=== PATIENT | female | born 1955 | race African-American/Black ===

== ENCOUNTER 2017-07-26 08:08 | Emergency (ER) | payer MEDICARE ==
[2017-07-26] MEDS ORDERED: ONDANSETRON HCL INJ/PF 4 MG/2 ML SDV IV ONE (09:27)
[2017-07-26] MEDS ORDERED: MORPHINE SULFATE 10 MG/ML INJ IV ONE (09:27)
[2017-07-26] MEDS ORDERED: KETOROLAC TROMETHAMINE INJ/PF 30 MG/1 ML SDV IV ONE (09:27)
--- NOTE | 2017-07-26 09:35 | ER Document Report ---
ED General - General Chief Complaint: Back Pain Stated Complaint: LEFT SIDE PAIN Time Seen by Provider: 07/26/17 09:26 Notes: 61-year-old female patient to the emergency department chief complaint of pain in the lower abdomen/left inguinal area. States that she has been working in a very cold environment. This hurts her leg. Denies any trauma. Denies any excessive stress. No prior history of sickle cell disease. No prior history of kidney stones. No fever, chills, sweats. Patient states that the pain is severe. TRAVEL OUTSIDE OF THE [place] IN LAST 30 DAYS: No - HPI Onset: Yesterday Onset/Duration: Gradual Quality of pain: Throbbing Associated symptoms: None Exacerbated by: Standing, Movement - Related Data Allergies/Adverse Reactions: No Known Allergies Allergy (Verified 07/26/17 08:10) Past Medical History - General Information source: Patient - Social History Smoking Status: Unknown if Ever Smoked Cigarette use (# per day): No Frequency of alcohol use: None Drug Abuse: None Lives with: Family Family History: Reviewed & Not Pertinent - Past Medical History Cardiac Medical History: Reports: None Pulmonary Medical History: Reports: None EENT Medical History: Reports: None Neurological Medical History: Reports: None Endocrine Medical History: Reports: None Renal/ Medical History: Reports: None Malignancy Medical History: Reports: None GI Medical History: Reports: None Musculoskeltal Medical History: Reports None Skin Medical History: Reports None Psychiatric Medical History: Reports: None Traumatic Medical History: Reports: None Infectious Medical History: Reports: None Review of Systems - Review of Systems Constitutional: denies: Chills, Diaphoresis, Fever, Malaise, Weakness EENT: denies: Eye pain, Eye discharge, Blurred vision, Mouth pain, Mouth swelling Cardiovascular: denies: Chest pain, Palpitations, Heart racing, Orthopnea, Dyspnea, Syncope Respiratory: denies: Cough, Hurts to breathe, Short of breath, Sputum, Wheezing Gastrointestinal: denies: Abdominal pain, Diarrhea, Nausea, Vomiting, Constipation Female Genitourinary: Post menopausal. denies: Vaginal discharge, Vaginal bleeding, Vaginal odor Musculoskeletal: Joint pain, Muscle pain. denies: Back pain, Gout, Joint swelling, Muscle stiffness, Deformity Hematologic/Lymphatic: denies: Blood clots, Easy bleeding, Easy bruising, Enlarged lymph nodes, Swollen glands Neurological/Psychological: denies: Confusion, Dementia, Depression, Weakness Physical Exam - Vital signs Vitals: Temp Pulse Resp BP Pulse Ox 98.9 F 77 16 137/69 H 100 07/26/17 08:16 07/26/17 08:16 07/26/17 08:16 07/26/17 08:16 07/26/17 08:16 Interpretation: Normal - General General appearance: Appears well, Alert - HEENT Head: Normocephalic, Atraumatic Eyes: Normal Pupils: PERRL - Respiratory Respiratory status: No respiratory distress Chest status: Nontender Breath sounds: Normal Chest palpation: Normal - Cardiovascular Rhythm: Regular Heart sounds: Normal auscultation Murmur: No - Abdominal Inspection: Normal Distension: No distension Bowel sounds: Normal Tenderness: Nontender. No: Guarding, Rebound Organomegaly: No organomegaly - Back Back: Normal, Nontender - Extremities General upper extremity: Normal inspection, Nontender, Normal color, Normal ROM , Normal temperature General lower extremity: Normal inspection, Normal color, Normal ROM, Normal temperature, Normal weight bearing, Other - There is some mild tenderness to palpation in the left inguinal iliopsoas type area. Good pulses present at the femoral artery as well as distally at the dorsalis pedis. No obvious deformities noted.. No: Aubrie's sign - Neurological Neuro grossly intact: Yes Cognition: Normal Orientation: AAOx4 Soledad Coma Scale Eye Opening: Spontaneous Eleonora Coma Scale Verbal: Oriented Soledad Coma Scale Motor: Obeys Commands Soledad Coma Scale Total: 15 Speech: Normal Motor strength normal: LUE, RUE, LLE, RLE Sensory: Normal - Psychological Associated symptoms: Normal affect, Normal mood - Skin Skin Temperature: Warm Skin Moisture: Dry Skin Color: Normal Course - Re-evaluation Re-evalutation: 07/26/17 11:07 Uncertain etiology of patient's symptoms. Based on the fact that there could be issues with regards to blood vessels will CT the abdomen and pelvis to evaluate for any potential discrepancies there or reasons which would explain her pain in the left inguinal region. 07/26/17 11:33 Patient explained results of CT scan. Find no obvious reason to explain her pain today. Patient was advised she will need close follow-up. Will advise her to follow-up with her regular doctor. Pain medications were given. Will advise she continue with anti-inflammatories as an outpatient. Patient advised to return for any worsening symptoms or concerns. Of note there is no asymmetrical swelling of the bilateral lower extremities. There is no atrium symmetrical swelling or pain in the cast. Concern for DVT low at this time. - Vital Signs Vital signs: Temp Pulse Resp BP Pulse Ox 98.9 F 77 16 137/69 H 100 07/26/17 08:16 07/26/17 08:16 07/26/17 08:16 07/26/17 08:16 07/26/17 08:16 07/26/17 11:04 Abdomen/Pelvis CT 07/26/17 09:26 IMPRESSION: A moderate amount of gas and fecal material is identified throughout the colon. There are couple short segments of small bowel in the left abdomen with some apparent thickening of the schofield. This is of uncertain etiology or significance. Clinical correlation is recommended. Moderate size pericardial effusion is identified. Other findings as noted above - Laboratory Result Diagrams: 07/26/17 09:50 07/26/17 09:50 Laboratory results interpreted by me: 07/26/17 07/26/17 09:50 10:45 WBC 3.3 L RDW 14.2 H Absolute Neutrophils 1.4 L Urine Urobilinogen 2.0 H Ur Leukocyte Esterase SMALL H Discharge - Discharge Clinical Impression: Left inguinal pain Condition: Good Disposition: HOME, SELF-CARE Additional Instructions: Anti-Inflammatory Medication You have received a prescription for an antiinflammatory agent. This is an excellent, safe drug for pain control. In addition, it has potent antiinflammatory effects which are beneficial, especially in the treatment of injuries, arthritis, or tendonitis. It's best to take this medicine with food. Persons with ulcer disease or allergy to aspirin should notify their physician of this before taking this drug. Take the medication exactly as prescribed. Don't take additional doses unless instructed to do so by your doctor. If you develop wheezing, shortness of breath, hives, faintness, stomach pain, vomiting, or dark black stools, return for re-evaluation at once.Muscle Relaxers Muscle relaxing medications are usually prescribed for acute muscle spasm or injury to the neck and back. They are often combined with antiinflammatory pain medication for increased relief. You may stop the muscle relaxer when the pain and stiffness have improved. Start the medication again if spasms recur. Muscle relaxers may cause drowsiness, especially with the first dose. Do not operate machinery or drive while under the effects of the medication. Most muscle relaxers last up to 24 hours. Do not combine the medication with alcohol.Muscle Strain You have strained a muscle -- torn the fibers within the muscle. This often occurs with strenuous exertion, or during an injury that suddenly stretches the muscle. The seriousness of a strain varies. Some strains heal within days, others cause problems for months. X-rays cannot show a muscle strain. X-rays are taken only if symptoms suggest that a fracture could be present. The usual treatment of a muscle strain is rest and ice packs. Sometimes, a sling, splint, or crutches may be necessary to rest the muscle. The muscle can be used again once pain subsides. Severe strains require a special exercise and stretching program to prevent permanent stiffness and disability. Your doctor will advise you if this will be necessary. Call the doctor immediately if pain or swelling becomes severe, or if numbness or discoloration develop. Prescriptions: Diazepam [Valium 5 mg Tablet] 5 mg PO BID 5 Days #15 tablet Ibuprofen [Motrin 600 Mg Tablet] 600 mg PO TID #15 tablet Forms: Return to Work Referrals: YG FELIX NP [Primary Care Provider] - Follow up in 3-5 days
[2017-07-26] MEDS ORDERED: KETOROLAC TROMETHAMINE 60 MG/2 ML SDV IM ONE (09:48)
[2017-07-26] MEDS ORDERED: MORPHINE SULFATE 10 MG/ML INJ IM ONE (09:49)
[2017-07-26 10:04] LABS: ABSOLUTE EOSINOPHILS # (AUTO) 0.2 10^3/uL (0.0-0.6); ABSOLUTE LYMPHOCYTES (AUTO) 1.3 10^3/uL (0.5-4.7); ABSOLUTE MONOCYTES (AUTO) 0.3 10^3/uL (0.1-1.4); ABSOLUTE NEUT (AUTO) 1.4 10^3/uL (1.7-8.2); BASOPHILS % (AUTO) 1.2 % (0-2); HEMATOCRIT 41.5 % (36.0-47.0); HEMOGLOBIN 13.5 g/dL (12.0-15.5); LYMPHOCYTES % (AUTO) 40.1 % (13-45); MEAN CORPUSCULAR HEMOGLOBIN 29.2 pg (27.0-33.4); MEAN CORPUSCULAR HGB CONC 32.5 g/dL (32.0-36.0); MEAN CORPUSCULAR VOLUME 90 fl (80-97); MONOCYTES % (AUTO) 10.3 % (3-13); PLATELET COUNT 232 10^3/uL (150-450); RED BLOOD COUNT 4.61 10^6/uL (3.72-5.28); RED CELL DISTRIBUTION WIDTH 14.2 % (11.5-14.0); SEGMENTED NEUTROPHILS % (AUTO) 43.4 % (42-78); TOTAL CELLS COUNTED % (AUTO) 100 %; WHITE BLOOD COUNT 3.3 10^3/uL (4.0-10.5)
[2017-07-26 10:27] LABS: ALANINE AMINOTRANSFERASE 22 U/L (9-52); ALBUMIN 4.2 g/dL (3.5-5.0); ALKALINE PHOSPHATASE 105 U/L (38-126); ANION GAP 6 (5-19); ASPARTATE AMINO TRANSFERASE 22 U/L (14-36); BILIRUBIN,DIRECT 0.2 mg/dL (0.0-0.4); BILIRUBIN,TOTAL 0.2 mg/dL (0.2-1.3); BLOOD UREA NITROGEN 11 mg/dL (7-20); CALCIUM 10.2 mg/dL (8.4-10.2); CARBON DIOXIDE 29 mmol/L (22-30); CHLORIDE 107 mmol/L (98-107); GLUCOSE 99 mg/dL (75-110); POTASSIUM 4.1 mmol/L (3.6-5.0); TOTAL PROTEIN 6.9 g/dL (6.3-8.2)
--- NOTE | 2017-07-26 10:41 | RADIOLOGY REPORT (SQ) ---
EXAM DESCRIPTION: CT ABD/PELVIS NO ORAL OR IV COMPLETED DATE/TIME: 07/26/2017 10:21 am REASON FOR STUDY: left inguinal pain/pelvis pain COMPARISON: None. TECHNIQUE: CT scan of the abdomen and pelvis performed without intravenous or oral contrast. Images reviewed with lung, soft tissue, and bone windows. Reconstructed coronal and sagittal MPR images revi ewed. All images stored on PACS. All CT scanners at this facility use dose modulation, iterative reconstruction, and/or weight based d osing when appropriate to reduce radiation dose to as low as reasonably achievable (ALARA). [facility]: Dose Right [facility]: CareDose [facility]: Dose Right [facility]: Teradose 4D [facility]: Corvalius RADIATION DOSE: mGy. LIMITATIONS: None. FINDINGS: LOWER CHEST: Ill-defined basilar densities are identified most consistent with atelectatic changes although the possibility of developing pneumonic infiltrates cannot be excluded. No pleural effusions are identified. Moderate size pericardial effusion is identified. NON-CONTRASTED LIVER, SPLEEN, ADRENALS: Evaluation limited by lack of IV contrast. No identified sign ificant masses. There are a couple small hepatic cyst in the right lobe of the liver with the larges t measuring 2.6 cm in greatest diameter. There are couple other tiny relative low density areas whic h are too small to further characterize by CT. PANCREAS: No masses. No peripancreatic inflammatory changes. GALLBLADDER: No identified stones by CT criteria. No inflammatory changes to suggest cholecystitis. RIGHT KIDNEY AND URETER: No suspicious masses. Assessment limited by lack of IV contrast. No signif icant calcifications. No hydronephrosis or hydroureter. LEFT KIDNEY AND URETER: No suspicious masses. Assessment limited by lack of IV contrast. No signifi cant calcifications. No hydronephrosis or hydroureter. AORTA AND RETROPERITONEUM: No aneurysm. No retroperitoneal masses or adenopathy. BOWEL AND PERITONEAL CAVITY: No obvious masses or inflammatory changes. No free fluid. A moderate am ount of gas and fecal material is identified throughout the colon. There are a couple short segments of small bowel in the left abdomen with some apparent thickening of the schofield. This is of uncertain etiology or significance. APPENDIX: Normal. PELVIS, BLADDER, AND ABDOMINAL WALL:No abnormal masses. No free fluid. Bladder normal. BONES: An old fracture of the inferior pubic ramus on the right is identified. OTHER: No other significant finding. IMPRESSION: A moderate amount of gas and fecal material is identified throughout the colon. There a re couple short segments of small bowel in the left abdomen with some apparent thickening of the wall s. This is of uncertain etiology or significance. Clinical correlation is recommended. Moderate si ze pericardial effusion is identified. Other findings as noted above COMMENT: Quality ID # [id number]: Final reports with documentation of one or more dose reduction techniques (e.g., Automated exposure control, adjustment of the mA and/or kV according to patient size, use of iterative reconstruction technique) TECHNICAL DOCUMENTATION: JOB ID: [id number] [employer]- All Rights Reserved
[2017-07-26 11:13] LABS: APPEARANCE,URINE SLIGHTLY-CLOUDY; BILIRUBIN,URINE NEGATIVE (NEGATIVE); CALCIUM OXALATE CRYSTALS,URINE MANY /HPF; COLOR,URINE YELLOW; GLUCOSE, URINE NEGATIVE (NEGATIVE); KETONES,URINE NEGATIVE (NEGATIVE); LEUKOCYTE ESTERASE,URINE SMALL (NEGATIVE); NITRITE,URINE NEGATIVE (NEGATIVE); PROTEIN,URINE NEGATIVE (NEGATIVE); URINE SPECIFIC GRAVITY 1.017
[2017-07-26 11:53] VITALS: BP 128/52
== END 2017-07-26 12:00 | disposition home or self-care (01) ==
LOC: ER 08:08
DX: R10.32 Left lower quadrant pain (principal)
CPT/HCPCS: 99284; 96372; 36415; 87086; 85025; 87088; 80053; 81001; 87186; 74176; J1885; J2270

== ENCOUNTER → 2018-07-13 | Outpatient (CLI) | payer MEDICARE ==
--- NOTE | 2018-07-13 11:32 | WOMENS IMAGING REPORT ---
EXAM DESCRIPTION: BONE DENSITY HIP/SPINE COMPLETED DATE/TIME: 07/13/2018 10:08 am REASON FOR STUDY: BONE DENSITY Z12.31 ENCNTR SCREEN MAMMOGRAM FOR MALIGNANT NEOPLASM OF DAVID Z78.0 ASYMPTOMATIC MENOPAUSAL STATE COMPARISON: None. TECHNIQUE: Dual-Energy X-ray Absorptiometry (DEXA) of the AP Spine and Hip. LIMITATIONS: None. FINDINGS: LUMBAR SPINE: The bone mineral density (BMD) measured from L1-L4 in the AP projection correlates with a T-score of -1.8, which is osteopenia as defined by the World Health Organization. HIP: The bone mineral density (BMD) measured in the left hip correlates with a T-score of -2.0, which is o steopenia as defined by the World Health Organization. IMPRESSION: 1. LUMBAR SPINE: OSTEOPENIA. 2. HIP: OSTEOPENIA. COMMENT: The World Health Organization defines low BMD as follows: T-score: Normal: Greater than -1.0 Osteopenia: Between -1.0 and -2.5 Osteoporosis: Less than -2.5 without fractures Established osteoporosis: Less than -2.5 with fractures In general, you may wish to consider: Diagnosis Treatment Follow-up DEXA Normal BMD Prevention 2-3 years Osteopenia Prevention/Therapy 1-2 years Osteoporosis Therapy Yearly TECHNICAL DOCUMENTATION: JOB ID: [id number] [employer]- All Rights Reserved Reading location - IP/workstation name: [email or web address]
== END ==
LOC: WI 11:01
PROVIDERS: ATTEND Physician Assistant
DX: Z12.31 Encounter for screening mammogram for malignant neoplasm of breast (principal); Z13.820 Encounter for screening for osteoporosis
CPT/HCPCS: 77067; 77080

== ENCOUNTER 2019-02-12 11:55 | Emergency (ER) | payer MEDICARE ==
--- NOTE | 2019-02-12 12:25 | ER Document Report ---
ED Medical Screen (RME) - General Chief Complaint: Chest Pain Stated Complaint: NUMBNESS Time Seen by Provider: 02/12/19 12:20 Primary Care Provider: YUE PICKETT PA-C [Primary Care Provider] - Follow up as needed Mode of Arrival: Ambulatory Information source: Patient Notes: Patient is a 63-year-old female presents the emergency department chief complaint of left arm pain and chest pressure. Patient reports left arm pain has been going on for approximately 2 weeks. She reports it feels like a sharp stabbing pain with tingling. She states that approximately 3 days ago she started having left-sided chest pressure that radiates straight through to her left shoulder. She denies any nausea or vomiting but does report shortness of breath. She does report a history of hypertension but states it took her off of all of her medications. She is a former smoker. Exam: Lung sounds clear and equal bilaterally. Heart sounds S1-S2 present with no ectopy noted. I have greeted and performed a rapid initial assessment of this patient. A comprehensive ED assessment and evaluation of the patient, analysis of test results and completion of the medical decision making process will be conducted by additional ED providers. I have specifically instructed the patient or family members with the patient to immediately return to any nursing staff should anything change in the patient's condition or with their chief complaint. This medical record was dictated with voice recognizing software. There may be grammatical, syntax errors that are unintended. TRAVEL OUTSIDE OF THE [place] IN LAST 30 DAYS: No - Related Data Allergies/Adverse Reactions: No Known Allergies Allergy (Verified 07/26/17 08:10) Past Medical History - Past Medical History Cardiac Medical History: Reports: Hx Hypertension Renal/ Medical History: Denies: Hx Peritoneal Dialysis Past Surgical History: Reports: Hx Breast Surgery - lumpnectomy, Hx Orthopedic Surgery Physical Exam - Vital signs Vitals: Temp Pulse Resp BP Pulse Ox 98.4 F 77 20 151/69 H 97 02/12/19 12:02/12/19 12:02/12/19 12:02/12/19 12:02/12/19 12:01 Course - Vital Signs Vital signs: Temp Pulse Resp BP Pulse Ox 98.4 F 77 20 151/69 H 97 02/12/19 12:02/12/19 12:02/12/19 12:01 02/12/19 12:01 02/12/19 12:01 Doctor's Discharge - Discharge Referrals: YUE PICKETT PA-C [Primary Care Provider] - Follow up as needed
[2019-02-12 13:13] LABS: ABSOLUTE BASOPHILS # (AUTO) 0.1 10^3/uL (0.0-0.2); ABSOLUTE EOSINOPHILS # (AUTO) 0.3 10^3/uL (0.0-0.6); ABSOLUTE LYMPHOCYTES (AUTO) 1.8 10^3/uL (0.5-4.7); ABSOLUTE MONOCYTES (AUTO) 0.5 10^3/uL (0.1-1.4); ABSOLUTE NEUT (AUTO) 2.6 10^3/uL (1.7-8.2); ALBUMIN 3.9 g/dL (3.5-5.0); ALKALINE PHOSPHATASE 85 U/L (38-126); ASPARTATE AMINO TRANSFERASE 32 U/L (14-36); BILIRUBIN,DIRECT 0.2 mg/dL (0.0-0.4); BILIRUBIN,TOTAL 0.8 mg/dL (0.2-1.3); BLOOD UREA NITROGEN 15 mg/dL (7-20); CALCIUM 9.7 mg/dL (8.4-10.2); CHLORIDE 108 mmol/L (98-107); EOSINOPHILS % (AUTO) 4.9 % (0-6); GLUCOSE 94 mg/dL (75-110); HEMATOCRIT 40.2 % (36.0-47.0); HEMOGLOBIN 13.3 g/dL (12.0-15.5); LYMPHOCYTES % (AUTO) 34.9 % (13-45); MEAN CORPUSCULAR HEMOGLOBIN 30.6 pg (27.0-33.4); MEAN CORPUSCULAR HGB CONC 33.1 g/dL (32.0-36.0); MEAN CORPUSCULAR VOLUME 92 fl (80-97); MONOCYTES % (AUTO) 9.6 % (3-13); PLATELET COUNT 249 10^3/uL (150-450); RED BLOOD COUNT 4.36 10^6/uL (3.72-5.28); RED CELL DISTRIBUTION WIDTH 14.1 % (11.5-14.0); SEGMENTED NEUTROPHILS % (AUTO) 49.6 % (42-78); TOTAL CELLS COUNTED % (AUTO) 100 %; TOTAL PROTEIN 6.4 g/dL (6.3-8.2); WHITE BLOOD COUNT 5.2 10^3/uL (4.0-10.5)
[2019-02-12 13:22] LABS: ANION GAP 5 (5-19); CARBON DIOXIDE 27 mmol/L (22-30); POTASSIUM 4.1 mmol/L (3.6-5.0)
--- NOTE | 2019-02-12 13:42 | RADIOLOGY REPORT (SQ) ---
EXAM DESCRIPTION: CHEST 2 VIEWS COMPLETED DATE/TIME: 02/12/2019 1:31 pm REASON FOR STUDY: chest pressure COMPARISON: None. EXAM PARAMETERS: NUMBER OF VIEWS: two views TECHNIQUE: Digital Frontal and Lateral radiographic views of the chest acquired. RADIATION DOSE: NA LIMITATIONS: none FINDINGS: LUNGS AND PLEURA: No opacities, masses or pneumothorax. No pleural effusion. MEDIASTINUM AND HILAR STRUCTURES: No masses or contour abnormalities. HEART AND VASCULAR STRUCTURES: Cardiomegaly. Mild pulmonary edema. BONES: No acute findings. HARDWARE: None in the chest. OTHER: No other significant finding. IMPRESSION: Cardiomegaly with mild pulmonary edema. TECHNICAL DOCUMENTATION: JOB ID: [id number] [employer]- All Rights Reserved Reading location - IP/workstation name: [email or web address]
[2019-02-12] MEDS ORDERED: DEXAMETHASONE SOD PHOS INJ 10 MG/1 ML VIAL IV ONE ×2 (14:04→17:30)
[2019-02-12] MEDS ORDERED: ACETAMINOPHEN 325 MG TABLET PO ONE ×2 (14:04→17:30)
[2019-02-12] MEDS ORDERED: LIDOCAINE 5% (700 MG) TRANSDERMAL ADH..PATCH TP ONE ×2 (14:04→17:30)
[2019-02-12] MEDS ORDERED: KETOROLAC TROMETHAMINE INJ/PF 30 MG/1 ML SDV IV ONE ×2 (14:04→17:30)
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
--- NOTE | 2019-02-12 15:52 | EKG REPORT ---
SEVERITY:- ABNORMAL ECG - SINUS RHYTHM PROBABLE LEFT ATRIAL ABNORMALITY LEFT ANTERIOR FASCICULAR BLOCK LOW VOLTAGE IN FRONTAL LEADS : Confirmed by: Anna Joseph MD 12-Feb-2019 15:51:31
[2019-02-12 18:19] VITALS: BP 129/62
== END 2019-02-12 18:19 | disposition home or self-care (01) ==
LOC: ER 11:55
DX: R07.89 Other chest pain (principal); R20.2 Paresthesia of skin; M25.512 Pain in left shoulder; I10 Essential (primary) hypertension
CPT/HCPCS: 93005; 36415; 85025; 80053; 84484; 71046; 93010; A9270; J1885; J1100; 96374; 96375; 99284

== ENCOUNTER 2019-03-09 20:04 | Emergency (ER) | payer MEDICARE ==
[2019-03-09] MEDS ORDERED: DEXAMETHASONE SOD PHOS INJ 10 MG/1 ML VIAL IM ONE (20:15)
[2019-03-09] MEDS ORDERED: IPRATROPIUM/ALBUTEROL 0.5-2.5 MG/3 ML AMPUL NEB ONE (20:15)
--- NOTE | 2019-03-09 20:15 | ER Document Report ---
ED Medical Screen (RME) - General Chief Complaint: Shortness Of Breath Stated Complaint: SHORTNESS OF BREATH Time Seen by Provider: 03/09/19 20:11 Primary Care Provider: YUE PICKETT PA-C [Primary Care Provider] - Follow up as needed Mode of Arrival: Ambulatory Information source: Patient Notes: 63-year-old female presented to ED for complaint of shortness of breath x2 days. She states is getting worse. She is audibly wheezing at this time. She states she was here about a month ago and they told her she had some fluid in the lungs. She states she is supposed to be getting some further testing but she has not had it done yet and she is not able to continue to as she is right now. States she is smoked most of her life. States she stopped a month. Told me she had COPD I have greeted and performed a rapid initial assessment of this patient. A comprehensive ED assessment and evaluation of the patient, analysis of test results and completion of medical decision making process will be conducted by an additional ED providers. TRAVEL OUTSIDE OF THE [place] IN LAST 30 DAYS: No - Related Data Allergies/Adverse Reactions: No Known Allergies Allergy (Verified 03/09/19 20:07) Past Medical History - Past Medical History Cardiac Medical History: Reports: Hx Hypertension Renal/ Medical History: Denies: Hx Peritoneal Dialysis Past Surgical History: Reports: Hx Breast Surgery - lumpnectomy, Hx Orthopedic Surgery Physical Exam - Vital signs Vitals: Temp Pulse Resp BP Pulse Ox 99.8 F 85 25 H 146/86 H 100 03/09/19 20:06 03/09/19 20:06 03/09/19 20:06 03/09/19 20:06 03/09/19 20:06 Course - Vital Signs Vital signs: Temp Pulse Resp BP Pulse Ox 99.8 F 85 25 H 146/86 H 100 03/09/19 20:06 03/09/19 20:06 03/09/19 20:06 03/09/19 20:06 03/09/19 20:06 Doctor's Discharge - Discharge Referrals: YUE PICKETT PA-C [Primary Care Provider] - Follow up as needed
[2019-03-09] MEDS: ALBUTEROL SULFATE 0.083% NEB 2.5 MG/3 ML AMPUL NEB SCH ×2 (20:18→20:56)
[2019-03-09 21:04] LABS: ABSOLUTE EOSINOPHILS # (AUTO) 0.3 10^3/uL (0.0-0.6); ABSOLUTE LYMPHOCYTES (AUTO) 0.9 10^3/uL (0.5-4.7); ABSOLUTE MONOCYTES (AUTO) 0.3 10^3/uL (0.1-1.4); ABSOLUTE NEUT (AUTO) 3.4 10^3/uL (1.7-8.2); BASOPHILS % (AUTO) 0.9 % (0-2); EOSINOPHILS % (AUTO) 5.4 % (0-6); HEMATOCRIT 38.6 % (36.0-47.0); HEMOGLOBIN 12.9 g/dL (12.0-15.5); LYMPHOCYTES % (AUTO) 18.3 % (13-45); MEAN CORPUSCULAR HEMOGLOBIN 30.1 pg (27.0-33.4); MEAN CORPUSCULAR HGB CONC 33.3 g/dL (32.0-36.0); MEAN CORPUSCULAR VOLUME 90 fl (80-97); MONOCYTES % (AUTO) 6.6 % (3-13); PLATELET COUNT 196 10^3/uL (150-450); RED BLOOD COUNT 4.28 10^6/uL (3.72-5.28); RED CELL DISTRIBUTION WIDTH 14.2 % (11.5-14.0); SEGMENTED NEUTROPHILS % (AUTO) 68.8 % (42-78); TOTAL CELLS COUNTED % (AUTO) 100 %; WHITE BLOOD COUNT 4.9 10^3/uL (4.0-10.5)
--- NOTE | 2019-03-09 21:16 | RADIOLOGY REPORT (SQ) ---
EXAM DESCRIPTION: XR CHEST 2 VIEWS COMPLETED DATE/TME: 03/09/2019 20:16 CLINICAL HISTORY: 63 years, Female, cough congestion wheezing rhonchi COMPARISON: Prior study from 02/12/2019 NUMBER OF VIEWS: Two TECHNIQUE: Frontal and lateral radiographs of the chest were obtained. LIMITATIONS: None. FINDINGS: Cardiac and mediastinal contours are stable in appearance. Patchy left mid to lower lung zone opacity is noted. Similar findings are evident about the right lung base. No pneumothorax or large pleural effusion. IMPRESSION: Patchy multifocal bilateral airspace disease, suspicious for multifocal pneumonia. Recommend follow-up to clearing. copyright 2010 [employer]- All Rights Reserved
[2019-03-09 21:20] LABS: ALKALINE PHOSPHATASE 100 U/L (38-126); ANION GAP 9 (5-19); ASPARTATE AMINO TRANSFERASE 41 U/L (14-36); BILIRUBIN,DIRECT 0.1 mg/dL (0.0-0.4); BILIRUBIN,TOTAL 0.4 mg/dL (0.2-1.3); BLOOD UREA NITROGEN 13 mg/dL (7-20); CALCIUM 10.2 mg/dL (8.4-10.2); CARBON DIOXIDE 28 mmol/L (22-30); CHLORIDE 104 mmol/L (98-107); CREATINE KINASE 169 U/L (30-135); GLUCOSE 88 mg/dL (75-110); POTASSIUM 3.8 mmol/L (3.6-5.0); TOTAL PROTEIN 6.7 g/dL (6.3-8.2)
--- NOTE | 2019-03-09 21:32 | ER Document Report ---
ED General - General Chief Complaint: Shortness Of Breath Stated Complaint: SHORTNESS OF BREATH Time Seen by Provider: 03/09/19 20:11 Primary Care Provider: YUE PICKETT PA-C [Primary Care Provider] - Follow up as needed Mode of Arrival: Ambulatory TRAVEL OUTSIDE OF THE [place] IN LAST 30 DAYS: No - HPI Notes: Patient is a 63-year-old female who presents emergency department for evaluation of difficulty breathing. Symptoms been present for the last 48 hours, she states gradually worsening. She describes coughing as well as wheezing. Her cough has been nonproductive. She has had some chills but no lynette fevers to her knowledge. Describes sweating episodes as well. She is slightly short of breath when she lies down flat. She states last time she was here she was told by the physician that she had "fluid in her lungs." She was told that she needed further testing. She is currently awaiting echocardiogram. - Related Data Allergies/Adverse Reactions: No Known Allergies Allergy (Verified 03/09/19 20:07) Past Medical History - General Information source: Patient - Social History Smoking Status: Former Smoker - Quit January 2019 Frequency of alcohol use: None Drug Abuse: None Family History: Reviewed & Not Pertinent Patient has suicidal ideation: No Patient has homicidal ideation: No - Past Medical History Cardiac Medical History: Reports: Hx Hypertension Pulmonary Medical History: Reports: Hx Asthma Renal/ Medical History: Denies: Hx Peritoneal Dialysis Malignancy Medical History: Reports: Hx Breast Cancer - Breast cancer in the early 1999 Musculoskeletal Medical History: Reports Hx Arthritis Psychiatric Medical History: Reports: Hx Anxiety Past Surgical History: Reports: Hx Breast Surgery - lumpnectomy, Hx Orthopedic Surgery Review of Systems - Review of Systems Constitutional: No symptoms reported EENT: No symptoms reported Cardiovascular: See HPI Respiratory: See HPI Gastrointestinal: No symptoms reported Genitourinary: No symptoms reported Musculoskeletal: No symptoms reported Skin: No symptoms reported Neurological/Psychological: No symptoms reported Physical Exam - Vital signs Vitals: Temp Pulse Resp BP Pulse Ox 99.8 F 85 25 H 146/86 H 100 03/09/19 20:06 03/09/19 20:06 03/09/19 20:06 03/09/19 20:06 03/09/19 20:06 - Notes Notes: Is a 63-year-old female who appears her stated age and amount of moderate distress. She is mildly tachypneic Vital signs reviewed, please refer to chart. Head is normocephalic, atraumatic. Pupils equal round, reactive to light. Neck is supple without meningismus. Heart is regular rate and rhythm. Lungs reveal diminished breath sounds with expiratory wheezes, particularly at the bases. Abdomen is soft, nontender, normoactive bowel sounds throughout. Extremities without cyanosis, clubbing. Posterior calves are nontender. Peripheral pulses are equal. Skin is warm and dry. Patient is awake, alert, neurological exam is nonfocal. Course - Re-evaluation Re-evalutation: 03/09/19 23:11 Patient presents emergency department for evaluation. She had breathing treatment and steroids. Laboratory investigations and imaging is ordered. Her imaging showed signs of likely pneumonia. She does not have a significant leukocytosis. Her lung exam improved significantly. She is no longer smoking. She is oxygenating well. I explained to the patient that I am finding signs of significant pneumonia on x-ray. She does not meet inpatient criteria at this time, but she will require close follow-up. I will get and send her home with steroids, DuoNeb, antibiotics. She is given a dose of IV Levaquin here. The importance of repeat x-ray to follow this to resolution was explained to the patient and she voiced understanding. She does not have any lynette signs of congestive heart failure at this time, and her proBNP is below 750. She is to follow-up with primary care next week, return to the ED with worsening or new concerning symptoms of any sort. - Vital Signs Vital signs: Temp Pulse Resp BP Pulse Ox 99.8 F 85 19 117/81 98 03/09/19 20:06 03/09/19 20:06 03/09/19 21:00 03/09/19 21:00 03/09/19 21:00 - Laboratory Result Diagrams: 03/09/19 20:45 03/09/19 20:45 Laboratory results interpreted by me: 03/09/19 03/09/19 20:45 20:45 RDW 14.2 H AST 41 H Creatine Kinase 169 H - Diagnostic Test Radiology reviewed: Reports reviewed Radiology results interpreted by me: 03/09/19 23:12 Chest X-Ray 03/09/19 20:16 IMPRESSION: Patchy multifocal bilateral airspace disease, suspicious for multifocal pneumonia. Recommend follow-up to clearing. copyright 2011 [facility] [employer]- All Rights Reserved Discharge - Discharge Clinical Impression: Pneumonia Condition: Stable Disposition: HOME, SELF-CARE Instructions: Pneumonia (OM) Additional Instructions: Your x-ray today indicated pneumonia. Please take all of the antibiotics as prescribed until gone, starting tomorrow. Start your thyroids tomorrow as well. Use DuoNeb as needed at home. You should have a repeat chest x-ray to follow t his to resolution. Follow-up with your primary care provider next week. If you develop fevers, vomiting, increased difficulty breathing, or any other new or concerning symptoms, return immediately to the emergency department for reevaluation. Referrals: YUE PICKETT PA-C [Primary Care Provider] - Follow up as needed
[2019-03-09 21:41] LABS: NT PRO BNP 693 pg/mL (5-900)
[2019-03-09 21:43] LABS: TROPONIN I < 0.012 ng/mL
[2019-03-09] MEDS ORDERED: LEVOFLOXACIN 750 MG/D5W RTU 750 MG/150 ML RTUPB IV ONE (22:41)
[2019-03-10] MEDS ORDERED: ACETAMINOPHEN 325 MG TABLET PO ONE (00:02)
[2019-03-10 00:52] VITALS: BP 142/83
== END 2019-03-10 00:52 | disposition home or self-care (01) ==
LOC: ER 20:04
DX: J18.9 Pneumonia, unspecified organism (principal); J45.909 Unspecified asthma, uncomplicated; R05 Cough; R68.83 Chills (without fever); R06.02 Shortness of breath; I10 Essential (primary) hypertension; Z87.891 Personal history of nicotine dependence; Z85.3 Personal history of malignant neoplasm of breast
CPT/HCPCS: 94640 ×2; 99285; 96372; 96365; 36415; 87040; 82553; 82550; 85025; 80053; 84484; 83880; 71046; A9270 ×3; J1100; J1956; J7620

== ENCOUNTER 2019-03-24 02:39 | Emergency (ER) | payer MEDICARE ==
[2019-03-24] MEDS ORDERED: MORPHINE SULFATE 10 MG/ML INJ IV ONE ×2 (04:38→07:59)
[2019-03-24] MEDS ORDERED: ONDANSETRON HCL INJ/PF 4 MG/2 ML SDV IV ONE (04:38)
--- NOTE | 2019-03-24 04:42 | ER Document Report ---
ED General - General TRAVEL OUTSIDE OF THE [place] IN LAST 30 DAYS: No <SANDI DUNN - Last Filed: 03/24/19 07:53> <JOSYJOELLE - Last Filed: 03/24/19 10:47> - General Chief Complaint: Shortness Of Breath Stated Complaint: CHEST PAIN Time Seen by Provider: 03/24/19 04:28 Primary Care Provider: YUE PICKETT PA-C [Primary Care Provider] - Follow up as needed Notes: Patient is a 63-year-old female that comes emergency department for chief complaint of pain across her chest, pain and swelling in her right arm, and shortness of breath. She states she was diagnosed with pneumonia, she just completed her prednisone and she recently completed her Levaquin for this. She states she actually felt quite a bit better initially but 2 days ago she started feeling worse and now she states she had developed a persistent dull ache in her chest and right arm area. She states she has been having sweats at night but she denies fevers. She denies cough. She states that she has not had wheezing like she did before as well. She denies history of heart failure, [place], past medical history includes asthma, she just quit smoking, lumpectomy from the right breast, hypertension, anxiety. Patient states she took a BC powder before coming to the ED. (SANDI DUNN) - Related Data Allergies/Adverse Reactions: No Known Allergies Allergy (Verified 03/09/19 20:07) Past Medical History - General Information source: Patient - Social History Smoking Status: Former Smoker Frequency of alcohol use: None Drug Abuse: None Lives with: Alone Family History: Reviewed & Not Pertinent Patient has suicidal ideation: No Patient has homicidal ideation: No - Past Medical History Cardiac Medical History: Reports: Hx Hypertension Pulmonary Medical History: Reports: Hx Asthma Renal/ Medical History: Denies: Hx Peritoneal Dialysis Malignancy Medical History: Reports: Hx Breast Cancer - Breast cancer in the early 1999 Musculoskeletal Medical History: Reports Hx Arthritis Psychiatric Medical History: Reports: Hx Anxiety Past Surgical History: Reports: Hx Breast Surgery - lumpnectomy, Hx Orthopedic Surgery <SANDI DUNN - Last Filed: 03/24/19 07:53> Review of Systems - Review of Systems Constitutional: No symptoms reported EENT: No symptoms reported Cardiovascular: See HPI Respiratory: See HPI Gastrointestinal: No symptoms reported Genitourinary: No symptoms reported Female Genitourinary: No symptoms reported Musculoskeletal: See HPI Skin: No symptoms reported Hematologic/Lymphatic: No symptoms reported Neurological/Psychological: No symptoms reported <SANDI DUNN - Last Filed: 03/24/19 07:53> Physical Exam <SANDI DUNN - Last Filed: 03/24/19 07:53> - Vital signs Vitals: Temp Pulse Resp BP Pulse Ox 98.2 F 71 14 143/78 H 100 03/24/19 03:03 03/24/19 03:03 03/24/19 03:03 03/24/19 03:03 03/24/19 03:03 - Notes Notes: GENERAL: Alert, interacts well. No acute distress. HEAD: Normocephalic, atraumatic. EYES: Pupils equal, round, and reactive to light. Extraocular movements intact. ENT: Oral mucosa moist, tongue midline. Oropharynx unremarkable. Airway patent. Nares patent, no nasal septal hematoma NECK: Full range of motion. Supple. Trachea midline. LUNGS: Clear to auscultation bilaterally, no wheezes, rales, or rhonchi. No respiratory distress. Patient is tender over anterior chest on both sides. This is reproducible. No crepitus, erythema, fluctuance, or swelling noted. HEART: Regular rate and rhythm. No murmur ABDOMEN: Soft, non-tender. Non-distended. Bowel sounds present in all 4 quadrants. GENITOURINARY: Deferred EXTREMITIES: Moves all 4 extremities spontaneously. There does appear to be slight soft tissue swelling in the right hand/upper extremity, car lubricator is intact, capillary refill and sensation intact, there is some minimal generalized tenderness with palpation but range of motion at the shoulder, elbow, wrist, fingers intact, no abnormal erythema or discoloration, normal temperature. BACK: no cervical, thoracic, lumbar midline tenderness. No saddle anesthesia, normal distal neurovascular exam. Moves all extremities in full range of motion. NEUROLOGICAL: Alert and oriented x3. Normal speech. Cranial nerves II through XII grossly intact. PSYCH: Normal affect, normal mood. SKIN: Warm, dry, normal turgor. No rashes or lesions noted. (SANDI DUNN) Course - Laboratory Result Diagrams: 03/24/19 05:15 03/24/19 05:15 <SANDI DUNN - Last Filed: 03/24/19 07:53> - Laboratory Result Diagrams: 03/24/19 05:15 03/24/19 05:15 <JOELLE FERRIS - Last Filed: 03/24/19 10:47> - Re-evaluation Re-evalutation: No aspirin will be given additionally because patient states she took a full dose of BC powder prior to coming to the emergency department. EKG nonischemic with no T wave inversions or ST segment changes in consecutive leads. Chest x- ray unremarkable and is improved from previously when she had bilateral pneumonia. No vascular congestion. Patient does have some swelling/edema to the right hand and pain to the right arm generally. Pulses and sensation intact, strength intact, there is no erythema suggesting infection, possible DVT is suspected and a Doppler will be performed this morning when the tech arrives. In regards to the area of her chest is hurting this appears to be completely reproducible with palpation of the chest wall. CBC shows mild elevation of eosinophils but no leukocytosis or anemia. Chemistry unremarkable, troponin negative, BNP is lower than previously and not significantly elevated. (SANDI DUNN) 03/24/19 10:03 Patient reports the morphine did slightly help with her pain. The ultrasound was unofficially negative for DVT. Upon reevaluation patient does have some swelling to the right hand. Patient reports having point tenderness to the mid right humerus. Patient does deny injury or fall. Patient reports she feels like her bone makes a cracking noise when she moves it. I will obtain an x-ray to rule out any bony abnormality of the right shoulder and right humerus. I did inform the patient that if this is negative she will be discharged home. I did explain to patient strict return precautions and to keep the right upper extremity elevated over the next few days. Patient verbalized understanding. 03/24/19 10:45 X-ray of the right humerus and right shoulder were negative. I did reiterate the strict return precautions with the patient. Patient to continue and NSAIDs as she reports having the 800 mg ibuprofen at home. Patient to ice, elevate. We will give the patient a [place] to go back to take as needed for severe pain. Patient cautioned that this medication can make her drowsy so do not operate any heavy machinery or drive a vehicle on this medication. Patient reports her chest pain has slightly improved but is worse with movement, cough and deep breath. Patient does have reproducible chest pain throughout her entire chest with palpation. Patient symptoms are more consistent with musculoskeletal she reports extreme coughing with her recent pneumonia. (JOELLE FERRIS) - Vital Signs Vital signs: Temp Pulse Resp BP Pulse Ox 98.2 F 71 17 130/105 H 94 03/24/19 03:03 03/24/19 03:03 03/24/19 07:01 03/24/19 07:01 03/24/19 07:01 - Laboratory Laboratory results interpreted by me: 03/24/19 03/24/19 05:15 05:15 RDW 14.8 H Eos % (Auto) 8.6 H Absolute Eos (auto) 0.7 H Calcium 10.3 H - EKG Interpretation by Me Additional EKG results interpreted by me: EKG shows sinus rhythm at a rate of 63, QTC of 410, normal axis, no T wave inversions or ST segment changes in consecutive leads. There is low voltage but this is comparable to prior, there are flattened T waves anteriorly but this is also comparable to prior, there is a borderline inverted T wave in aVL. (SANDI DUNN) Discharge <SANDI DUNN - Last Filed: 03/24/19 07:53> <JOELLE FERRIS - Last Filed: 03/24/19 10:47> - Discharge Clinical Impression: Right arm pain, Chest wall pain, Arm swelling Chest pain Qualifiers: Chest pain type: unspecified Qualified Code(s): R07.9 - Chest pain, unspecified Condition: Stable Disposition: HOME, SELF-CARE Additional Instructions: Today you are seen in the emergency department for chest pain and right arm swel ling. We did obtain a cardiac work-up which was essentially normal. Your chest x-ray did show resolution of the pneumonia that you were recently treated for. We did obtain a Doppler of the right arm to rule out blood clot. This was also negative. We also obtained an x-ray of your shoulder and right humerus which were negative for any acute bony abnormality such as a fracture, dislocation or concerning lesion. X-rays do not show tendon, ligament or muscle injuries typically. We are unsure what is causing the swelling to your right arm. Over the next few days please keep the arm elevated above the heart to help with the swelling. Please seek medical attention if the swelling continues to get worse despite elevation, you have discoloration of your skin, numbness or tingling down the right arm, fever, redness or signs of infection around the arm, or any new or worsening symptoms. Chest Wall Pain Your chest pain has been diagnosed as coming from the chest wall. This is often caused by straining the muscles or joints in the chest during physical activity, direct trauma, coughing, or vigorous vomiting. Persons with arthritis are especially prone to this type of pain, due to inflammation of the cartilage joints near the breast bone. Occasionally, no cause can be found. Rest from strenuous physical activity. This kind of chest pain is usually made worse by movement of the chest. Depending on the symptoms, we may presc ribe medicine for pain, muscle relaxation, and antiinflammatory effects. If the pain is new, and seems to be due to muscle strain, cold packs can help. Otherwise, apply gentle warmth to the painful area for 15 minutes every hour or two. You should contact the doctor immediately if things change. Further evaluation is needed if you develop a fever or cough, if the nature of the pain changes, or if you become short of breath. Referrals: YUE PICKETT PA-C [Primary Care Provider] - Follow up as needed
--- NOTE | 2019-03-24 05:24 | RADIOLOGY REPORT (SQ) ---
EXAM DESCRIPTION: XR CHEST 1 VIEW COMPLETED DATE/TME: 03/24/2019 04:37 CLINICAL HISTORY: 63 years Female, shortness of breath, chest pain COMPARISON: 03/09/19 NUMBER OF VIEWS/TECHNIQUE: 1/AP FINDINGS: Adequate lung volume, clear parenchyma, prominent cardiac silhouette, and intact bony thorax. Interval improvement. IMPRESSION: No acute cardiopulmonary findings.
[2019-03-24 05:58] LABS: ABSOLUTE BASOPHILS # (AUTO) 0.1 10^3/uL (0.0-0.2); ABSOLUTE EOSINOPHILS # (AUTO) 0.7 10^3/uL (0.0-0.6); ABSOLUTE LYMPHOCYTES (AUTO) 1.9 10^3/uL (0.5-4.7); ABSOLUTE NEUT (AUTO) 4.4 10^3/uL (1.7-8.2); BASOPHILS % (AUTO) 1.1 % (0-2); EOSINOPHILS % (AUTO) 8.6 % (0-6); HEMATOCRIT 43.5 % (36.0-47.0); HEMOGLOBIN 14.3 g/dL (12.0-15.5); LYMPHOCYTES % (AUTO) 24.1 % (13-45); MEAN CORPUSCULAR HEMOGLOBIN 29.6 pg (27.0-33.4); MEAN CORPUSCULAR HGB CONC 32.8 g/dL (32.0-36.0); MEAN CORPUSCULAR VOLUME 90 fl (80-97); MONOCYTES % (AUTO) 11.8 % (3-13); PLATELET COUNT 272 10^3/uL (150-450); RED BLOOD COUNT 4.81 10^6/uL (3.72-5.28); RED CELL DISTRIBUTION WIDTH 14.8 % (11.5-14.0); SEGMENTED NEUTROPHILS % (AUTO) 54.4 % (42-78); TOTAL CELLS COUNTED % (AUTO) 100 %; WHITE BLOOD COUNT 8.1 10^3/uL (4.0-10.5)
[2019-03-24 06:12] LABS: ALBUMIN 4.2 g/dL (3.5-5.0); ALKALINE PHOSPHATASE 98 U/L (38-126); ANION GAP 9 (5-19); ASPARTATE AMINO TRANSFERASE 31 U/L (14-36); BILIRUBIN,DIRECT 0.3 mg/dL (0.0-0.4); BILIRUBIN,TOTAL 0.5 mg/dL (0.2-1.3); BLOOD UREA NITROGEN 13 mg/dL (7-20); CALCIUM 10.3 mg/dL (8.4-10.2); CARBON DIOXIDE 25 mmol/L (22-30); CHLORIDE 107 mmol/L (98-107); GLUCOSE 98 mg/dL (75-110); POTASSIUM 4.7 mmol/L (3.6-5.0); TOTAL PROTEIN 7.2 g/dL (6.3-8.2)
[2019-03-24 06:24] LABS: NT PRO BNP 420 pg/mL (5-900); TROPONIN I < 0.012 ng/mL
--- NOTE | 2019-03-24 09:11 | EKG REPORT ---
SEVERITY:- ABNORMAL ECG - SINUS RHYTHM LEFT ATRIAL ABNORMALITY LOW VOLTAGE IN FRONTAL LEADS BORDERLINE T ABNORMALITIES, ANT-LAT LEADS : Confirmed by: Chasity Zaldivar 24-Mar-2019 09:10:26
--- NOTE | 2019-03-24 10:21 | XCELERA REPORT ---
[address] [id number] Upper Extremity Venous Evaluation Name: NEY RAI Age: 63 yrs Gender: Female : 1955 Patient Status: Emergency Patient Location: ER Study Date: 03/24/2019 09:08 AM Procedure: Unilateral duplex scan of the right upper extremity veins was performed, including responses to compression and other maneuvers. Reason For Study: right arm pain/swelling Ordering Physician: SANDI DUNN Performed By: Donna Barahona Right Side Venous Evaluation Normal vessel filling wall to wall, compression and augmentation as well as Colour flow down to the forearm veins. Interpretation Summary Normal compression, patency, spontaneous and phasic flow of the right upper extremity veins. : SANDI DUNN > [address]
--- NOTE | 2019-03-24 10:34 | RADIOLOGY REPORT (SQ) ---
EXAM DESCRIPTION: HUMERUS RIGHT COMPLETED DATE/TIME: 03/24/2019 10:26 am REASON FOR STUDY: right upper arm pain COMPARISON: None. NUMBER OF VIEWS: Two views. TECHNIQUE: Two radiographic images were acquired of the right humerus to include elbow and shoulder in at least one projection. LIMITATIONS: None. FINDINGS: MINERALIZATION: Normal. BONES: No acute fracture or dislocation. No worrisome bone lesions. SOFT TISSUES: No obvious swelling or foreign body. OTHER: No other significant finding. IMPRESSION: NEGATIVE STUDY OF THE RIGHT HUMERUS. NO RADIOGRAPHIC EVIDENCE OF ACUTE INJURY. TECHNICAL DOCUMENTATION: JOB ID: [id number] [employer]- All Rights Reserved Reading location - IP/workstation name: [email or web address]
--- NOTE | 2019-03-24 10:35 | RADIOLOGY REPORT (SQ) ---
EXAM DESCRIPTION: SHOULDER RIGHT 2 OR MORE VIEWS COMPLETED DATE/TIME: 03/24/2019 10:26 am REASON FOR STUDY: right upper arm pain COMPARISON: None. NUMBER OF VIEWS: Three views. TECHNIQUE: Internal rotation, external rotation, and Y view images acquired of the right shoulder. LIMITATIONS: None. FINDINGS: MINERALIZATION: Normal. BONES: No acute fracture. No worrisome bone lesions. JOINTS: No dislocation. VISUALIZED LUNGS AND RIBS: No pneumothorax. No rib fracture. SOFT TISSUES: No radiopaque foreign body. OTHER: No other significant finding. IMPRESSION: NEGATIVE STUDY OF THE RIGHT SHOULDER. NO RADIOGRAPHIC EVIDENCE OF ACUTE INJURY. TECHNICAL DOCUMENTATION: JOB ID: [id number] [employer]- All Rights Reserved Reading location - IP/workstation name: [email or web address]
[2019-03-24] MEDS ORDERED: HYDROCODONE/ACETAMINOPHEN 5-325 MG (6 TAB/ER DISP) PO PRN (11:02)
[2019-03-24 11:05] VITALS: BP 156/90
== END 2019-03-24 11:05 | disposition home or self-care (01) ==
LOC: ER 02:39
DX: R07.89 Other chest pain (principal); M79.89 Other specified soft tissue disorders; R06.02 Shortness of breath; M79.601 Pain in right arm; R61 Generalized hyperhidrosis; J45.909 Unspecified asthma, uncomplicated; I10 Essential (primary) hypertension; Z87.891 Personal history of nicotine dependence; Z87.01 Personal history of pneumonia (recurrent); Z85.3 Personal history of malignant neoplasm of breast
CPT/HCPCS: 93005; 96376; 99285; 96374; 96375; 36415; 85025; 80053; 84484; 83880; 93971 ×2; 71045; 73060; 73030; 93010; J2270; J2405; A9270